=== PATIENT | male | born 1950 | race African-American/Black ===

== ENCOUNTER 2017-01-13 09:12 | Outpatient (CLI) | payer MEDICARE ==
[2017-01-13 12:44] LABS: Hemoglobin A1c 11.1 % (4.0-6.0)
== END 2017-01-13 09:13 | disposition home or self-care (01) ==
LOC: NAVSJIPCSP 09:12
PROVIDERS: ATTEND Internal Medicine
DX: E78.5 Hyperlipidemia, unspecified (principal); E11.65 Type 2 diabetes mellitus with hyperglycemia; Z79.899 Other long term (current) drug therapy
CPT/HCPCS: 36415; 80061; 83036

== ENCOUNTER 2017-04-15 08:42 | Outpatient (CLI) | payer MEDICARE ==
[2017-04-15 12:47] LABS: Hemoglobin A1c 11.3 % (4.0-6.0)
[2017-04-15 12:55] LABS: Cardiac Risk 3.8 (Less than 4.5)
== END 2017-04-15 08:43 | disposition home or self-care (01) ==
LOC: NAVSJIPCSP 08:42
PROVIDERS: ATTEND Internal Medicine
DX: E78.5 Hyperlipidemia, unspecified (principal); E11.65 Type 2 diabetes mellitus with hyperglycemia; Z79.899 Other long term (current) drug therapy
CPT/HCPCS: 36415; 80061; 83036

== ENCOUNTER 2017-07-23 10:04 | Outpatient (CLI) | payer MEDICARE ==
[2017-07-23 12:00] LABS: #Basophils 0.1 thou/uL (0.0-0.2); #Eosinphils 0.1 thou/uL (0.0-0.7); #Lymphocytes 3.4 thou/uL (1.20-3.40); #Monocytes 0.5 thou/uL (0.11-0.59); #Neutrophils 3.7 thou/uL (1.40-6.50); %Basophils 1.1 % (0.0-1.0); %Eosinophils 0.8 % (0.0-10.0); %Lymphocytes 43.9 % (21.0-51.0); %Monocytes 6.3 % (0.0-10.0); Mean Corpuscular HGB CONC 32.6 g/dL (32.0-36.0); Mean Corpuscular Hemoglobin 29.5 pg (27.0-31.0); Mean Corpuscular Volume 90.5 fl (80.0-94.0); Mean Platelet Volume 8.9 fL (7.4-10.4); Platelet Count 230 thou/uL (130-400); RBC Distribution Width 11.9 % (11.5-14.5); Red Blood Cell (RBC) Count 4.41 mill/uL (4.70-6.10); White Blood Cell (WBC) Count 7.8 thou/uL (4.8-10.8)
[2017-07-23 12:15] LABS: ALT (SGPT) 20 U/L (8-55); AST (SGOT) 18 U/L (5-34); Albumin 4.1 g/dL (3.4-4.8); Alkaline Phosphatase 80 U/L (40-150); Anion Gap 20 mmol/L (10-20); BUN (Urea Nitrogen) 11 mg/dL (8.4-25.7); Bilirubin, Total 0.3 mg/dL (0.2-1.2); Calc. Creatinine Clearance 0 mL/min (70-130); Calcium 9.1 mg/dL (7.8-10.44); Carbon Dioxide 20 mmol/L (23-31); Cardiac Risk 3.2 (Less than 4.5); Chloride 107 mmol/L (98-107); Cholesterol 168 mg/dl (< 200 Desired); Estimated GFR-MDRD 85; Glucose 200 mg/dL (80-115); HDL Cholesterol 53 mg/dL (>60 Neg Risk); LDL Cholesterol, Calculated 88 mg/dL; Protein, Total 7.1 g/dL (5.8-8.1); Sodium 143 mmol/L (136-145); Triglycerides 133 mg/dL (Less than 150)
[2017-07-23 12:27] LABS: Bilirubin Negative (Negative); Blood, Urine Negative (Negative); Clarity Clear (Clear); Glucose, Urine (Dipstick) 500 mg/dL (Negative); Leukocyte Negative (Negative); Nitrite Negative (Negative); Protein, Urine (Dipstick) Trace mg/dL (Neg-Trace); Specific Gravity, Urine 1.015 (1.005-1.030); Urobilinogen 0.2 mg/dL (0.2-1.0)
[2017-07-23 12:29] LABS: PSA-Asymptomatic (SCREENING) 0.57 ng/mL (0-4.0)
[2017-07-23 12:39] LABS: Hemoglobin A1c 10.9 % (4.0-6.0)
[2017-07-23 18:06] LABS: Hep C IgG Ab Non-Reactive (NonReactive); Hep C Index 0.13 S/CO (0-0.79)
[2017-07-23 18:12] LABS: Creatinine, Urine 140.8 mg/dL (63-166); Microalbumin Urine 9.3 mg/dL (0.5-50.0); Microalbumin/Creat Ratio 66.1 mg/g (Less than 30)
== END 2017-07-23 10:05 | disposition home or self-care (01) ==
LOC: NAVSJIPCSP 10:04
PROVIDERS: ATTEND Internal Medicine
DX: Z12.5 Encounter for screening for malignant neoplasm of prostate (principal); Z79.899 Other long term (current) drug therapy; I11.9 Hypertensive heart disease without heart failure; E11.65 Type 2 diabetes mellitus with hyperglycemia; E78.5 Hyperlipidemia, unspecified; Z72.89 Other problems related to lifestyle
CPT/HCPCS: 36415; 80053; 80061; 81003; 82043; 83036; 85025; 86803; G0103

== ENCOUNTER 2019-10-09 10:58 | Emergency (ER) | payer MEDICARE | END 2019-10-09 12:15 | disposition home or self-care (01) | LOC: NAV ERS 10:58 | DX: T16.2XXA Foreign body in left ear, initial encounter (principal); E11.9 Type 2 diabetes mellitus without complications; E78.5 Hyperlipidemia, unspecified; I10 Essential (primary) hypertension; Z87.891 Personal history of nicotine dependence; Z79.4 Long term (current) use of insulin; Z79.82 Long term (current) use of aspirin; Z79.899 Other long term (current) drug therapy | CPT/HCPCS: 69200 ==

== ENCOUNTER 2020-06-04 10:28 | Emergency (ER) | payer MEDICARE, OTHER ==
[2020-06-04] MEDS ORDERED: Ventolin HFA Inhaler 60 PUFF INHALER ONE (11:02)
[2020-06-04 11:13] LABS: #Basophils 0.1 thou/uL (0.0-0.2); #Eosinphils 0.1 thou/uL (0.0-0.7); #Lymphocytes 1.7 thou/uL (1.20-3.40); #Monocytes 1.1 thou/uL (0.11-0.59); #Neutrophils 15.2 thou/uL (1.40-6.50); %Basophils 0.6 % (0.0-1.0); %Eosinophils 0.3 % (0.0-10.0); %Lymphocytes 9.4 % (21.0-51.0); %Monocytes 5.9 % (0.0-10.0); %Neutrophils 83.8 % (42.0-75.0); Hemoglobin 9.5 g/dL (14.0-18.0); Mean Corpuscular HGB CONC 30.6 g/dL (32.0-36.0); Mean Corpuscular Hemoglobin 28.5 pg (27.0-31.0); Mean Corpuscular Volume 93.3 fL (78.0-98.0); Mean Platelet Volume 6.8 fL (7.4-10.4); Platelet Count 585 thou/uL (130-400); RBC Distribution Width 12.5 % (11.5-14.5); Red Blood Cell (RBC) Count 3.32 mill/uL (4.70-6.10); White Blood Cell (WBC) Count 18.1 thou/uL (4.8-10.8)
[2020-06-04 11:29] LABS: ALT (SGPT) 118 U/L (8-55); AST (SGOT) 34 U/L (5-34); Albumin 3.4 g/dL (3.4-4.8); Alkaline Phosphatase 91 U/L (40-110); Anion Gap 18 mmol/L (10-20); BUN (Urea Nitrogen) 20 mg/dL (8.4-25.7); Bilirubin, Total 0.3 mg/dL (0.2-1.2); Calc. Creatinine Clearance 0 mL/min (70-130); Calcium 8.9 mg/dL (7.8-10.44); Carbon Dioxide 17 mmol/L (23-31); Chloride 111 mmol/L (98-107); Estimated GFR-MDRD 64; Glucose 294 mg/dL (80-115); Potassium 3.9 mmol/L (3.5-5.1); Protein, Total 7.4 g/dL (5.8-8.1); Sodium 142 mmol/L (136-145)
[2020-06-04] MEDS ORDERED: Albuterol Sulfate 2.5 mg/0.5 ml Neb ONE (11:43)
[2020-06-04 11:56] LABS: CKMB 5.8 ng/mL (0-6.6)
[2020-06-04] MEDS ORDERED: Cefepime 2 GM VIAL ONE (12:13)
--- NOTE | 2020-06-04 12:24 | RAD ---
PORTABLE CHEST 1 VIEW: Date: 06/04/2020 Time: 1201 hours HISTORY: Dyspnea. COMPARISON: 05/29/2020. FINDINGS/IMPRESSION: The heart size is normal. There is pulmonary vascular congestion with bilateral perihilar opacities. No pneumothoraces or large effusions are seen. POS: [facility]
[2020-06-04] MEDS ORDERED: Sodium Chloride 0.9% 500 ML ONE (12:56)
[2020-06-04] MEDS ORDERED: Furosemide 40 MG/4 ML VIAL ONE (14:11)
== END 2020-06-04 14:43 | disposition short-term general hospital (02) ==
LOC: NAV ERS 10:28
DX: A41.9 Sepsis, unspecified organism (principal); J18.9 Pneumonia, unspecified organism; E11.9 Type 2 diabetes mellitus without complications; E78.5 Hyperlipidemia, unspecified; I10 Essential (primary) hypertension; Z87.891 Personal history of nicotine dependence; Z79.899 Other long term (current) drug therapy; Z79.4 Long term (current) use of insulin
CPT/HCPCS: 71045; 80053; 82553; 83605; 83880; 84484; 85025; 85379; 87040; 93005; 96365; 96366; 96375; J0692; J1940; J1956; J3370; J7030; J7611

== ENCOUNTER 2020-06-25 11:31 | Emergency (ER) | payer MEDICARE ==
[2020-06-25] MEDS ORDERED: cloNIDine 0.1 MG TAB ONE (11:51)
== END 2020-06-25 12:30 | disposition home or self-care (01) ==
LOC: NAV ERS 11:31
DX: R04.0 Epistaxis (principal); I10 Essential (primary) hypertension; E11.9 Type 2 diabetes mellitus without complications; E78.5 Hyperlipidemia, unspecified; Z87.891 Personal history of nicotine dependence; Z79.899 Other long term (current) drug therapy; Z79.82 Long term (current) use of aspirin
CPT/HCPCS: 99283

== ENCOUNTER 2020-07-14 13:09 | Emergency (ER) | payer MEDICARE | END 2020-07-14 15:09 | disposition home or self-care (01) | LOC: NAV ERS 13:09 | DX: S98.111D Complete traumatic amputation of right great toe, subsequent encounter (principal); E78.5 Hyperlipidemia, unspecified; I10 Essential (primary) hypertension; Z87.891 Personal history of nicotine dependence; Z79.82 Long term (current) use of aspirin; Z79.899 Other long term (current) drug therapy | CPT/HCPCS: 99282 ==

== ENCOUNTER 2021-02-15 17:27 | Outpatient (CLI) | payer MEDICARE | END 2021-02-15 17:28 | disposition home or self-care (01) | LOC: NAV RAD 17:27 | PROVIDERS: ATTEND Internal Medicine Infectious Disease | DX: M86.271 Subacute osteomyelitis, right ankle and foot (principal) ==

== ENCOUNTER 2021-07-12 11:10 | Outpatient (CLI) | payer MEDICARE ==
[2021-07-15 11:31] LABS: Anion Gap 12 mmol/L (10-20); BUN (Urea Nitrogen) 41 mg/dL (8.4-25.7); Calc. Creatinine Clearance 0 mL/min (70-130); Calcium 8.8 mg/dL (7.8-10.44); Carbon Dioxide 23 mmol/L (23-31); Chloride 108 mmol/L (98-107); Glucose 101 mg/dL (80-115); Potassium 5.4 mmol/L (3.5-5.1); Sodium 138 mmol/L (136-145)
[2021-07-15 12:55] LABS: Follow-up Chemistry Comp? YES; Follow-up Result - Chemistry REPORT FAXED
== END 2021-07-12 11:11 | disposition home or self-care (01) ==
LOC: NAV LABSP 11:10
PROVIDERS: ATTEND Internal Medicine
DX: N18.4 Chronic kidney disease, stage 4 (severe) (principal)
CPT/HCPCS: 80048

== ENCOUNTER 2021-07-22 10:34 | Outpatient (CLI) | payer MEDICARE ==
[2021-07-22 11:21] LABS: Albumin 3.2 g/dL (3.4-4.8); Anion Gap 15 mmol/L (10-20); BUN (Urea Nitrogen) 49 mg/dL (8.4-25.7); BUN/Creatinine Ratio 22.79; Calc. Creatinine Clearance 0 mL/min (70-130); Calcium 8.4 mg/dL (7.8-10.44); Carbon Dioxide 19 mmol/L (23-31); Chloride 112 mmol/L (98-107); Glucose 122 mg/dL (80-115); Phosphorus 4.6 mg/dL (2.3-4.7); Potassium 4.1 mmol/L (3.5-5.1); Sodium 142 mmol/L (136-145)
[2021-07-22 12:06] LABS: Follow-up Chemistry Comp? YES; Follow-up Result - Chemistry REPORT FAXED
== END 2021-07-22 10:35 | disposition home or self-care (01) ==
LOC: NAV LABSP 10:34
PROVIDERS: ATTEND Internal Medicine Nephrology
DX: N17.9 Acute kidney failure, unspecified (principal)
CPT/HCPCS: 36415; 80069

== ENCOUNTER 2021-08-16 09:36 | Outpatient (CLI) | payer MEDICARE ==
[2021-08-16 12:31] LABS: Hemoglobin 10.5 g/dL (14.0-18.0); Mean Corpuscular HGB CONC 30.5 g/dL (32.0-36.0); Mean Corpuscular Hemoglobin 27.6 pg (27.0-31.0); Mean Corpuscular Volume 90.4 fL (78.0-98.0); White Blood Cell (WBC) Count 7.5 thou/uL (4.8-10.8)
[2021-08-16 12:32] LABS: Mean Platelet Volume 7.2 fL (7.4-10.4); Platelet Count 304 thou/uL (130-400)
[2021-08-16 12:33] LABS: Albumin 3.5 g/dL (3.4-4.8); Anion Gap 15 mmol/L (10-20); BUN (Urea Nitrogen) 51 mg/dL (8.4-25.7); BUN/Creatinine Ratio 19.17; Calc. Creatinine Clearance 0 mL/min (70-130); Carbon Dioxide 18 mmol/L (23-31); Chloride 110 mmol/L (98-107); Glucose 166 mg/dL (80-115); Potassium 4.9 mmol/L (3.5-5.1); Sodium 138 mmol/L (136-145)
[2021-08-16 12:34] LABS: Magnesium 1.8 mg/dL (1.6-2.6)
[2021-08-16 12:38] LABS: Follow-up Chemistry Comp? YES; Follow-up Hematology Comp? YES; Follow-up Result - Chemistry REPORT FAXED; Follow-up Result - Hematology REPORT FAXED
== END 2021-08-16 09:37 | disposition home or self-care (01) ==
LOC: NAV LAB 09:36
PROVIDERS: ATTEND Internal Medicine Nephrology
DX: N17.9 Acute kidney failure, unspecified (principal); N18.30 Chronic kidney disease, stage 3 unspecified
CPT/HCPCS: 80069; 83735; 85027

== ENCOUNTER 2021-08-30 09:47 | Outpatient (CLI) | payer MEDICARE ==
[2021-08-30 12:43] LABS: Hemoglobin A1c 6.6 % (4.0-6.0)
[2021-08-30 13:23] LABS: Cardiac Risk 3.3 (Less than 4.5)
== END 2021-08-30 09:48 | disposition home or self-care (01) ==
LOC: NAV LABSP 09:47
PROVIDERS: ATTEND Internal Medicine
DX: E78.5 Hyperlipidemia, unspecified (principal); E11.65 Type 2 diabetes mellitus with hyperglycemia
CPT/HCPCS: 80061; 83036

== ENCOUNTER 2021-12-02 10:24 | Emergency (ER) | payer MEDICARE ==
[2021-12-02] MEDS ORDERED: Cefepime 2 GM VIAL ONE (11:21)
[2021-12-02] MEDS ORDERED: Sodium Chloride 0.9% 100 ML ONE (11:21)
[2021-12-02 11:36] LABS: #Basophils 0.1 thou/uL (0.0-0.2); #Lymphocytes 1.1 thou/uL (1.20-3.40); #Monocytes 1.2 thou/uL (0.11-0.59); #Neutrophils 8.5 thou/uL (1.40-6.50); %Basophils 0.9 % (0.0-1.0); %Eosinophils 0.1 % (0.0-10.0); %Lymphocytes 9.8 % (21.0-51.0); %Monocytes 11.3 % (0.0-10.0); %Neutrophils 77.9 % (42.0-75.0); Hemoglobin 10.2 g/dL (14.0-18.0); Mean Corpuscular HGB CONC 31.3 g/dL (32.0-36.0); Mean Corpuscular Volume 92.5 fL (78.0-98.0); Mean Platelet Volume 6.7 fL (7.4-10.4); Platelet Count 270 thou/uL (130-400); RBC Distribution Width 14.9 % (11.5-14.5); Red Blood Cell (RBC) Count 3.53 mill/uL (4.70-6.10); White Blood Cell (WBC) Count 10.9 thou/uL (4.8-10.8)
[2021-12-02 11:41] LABS: Bilirubin Negative (Negative); Blood, Urine Moderate (Negative); Clarity Clear (Clear); Glucose, Urine (Dipstick) Negative (Negative); Ketone, Urine 15 mg/dL (Negative); Leukocyte Negative (Negative); Nitrite Negative (Negative); Protein, Urine (Dipstick) > or equal to 300 mg/dL (Neg-Trace); Urobilinogen 0.2 mg/dL (Less than 2); pH, Urine 5.5 (5.0-9.0)
[2021-12-02 11:49] LABS: ALT (SGPT) 7 U/L (8-55); AST (SGOT) 12 U/L (5-34); Albumin 3.5 g/dL (3.4-4.8); Alkaline Phosphatase 76 U/L (40-110); Anion Gap 18 mmol/L (10-20); BUN (Urea Nitrogen) 32 mg/dL (8.4-25.7); Bilirubin, Total 0.5 mg/dL (0.2-1.2); CK (CPK) 175 U/L (30-200); Calc. Creatinine Clearance 0 mL/min (70-130); Calcium 8.9 mg/dL (7.8-10.44); Carbon Dioxide 17 mmol/L (23-31); Chloride 111 mmol/L (98-107); Globulin 4.5 g/dL (2.4-3.5); Glucose 112 mg/dL (83-110); Lipase 9 U/L (8-78); Sodium 141 mmol/L (136-145)
[2021-12-02 11:52] LABS: Bacteria/HPF None Seen HPF (None Seen); Squamous Epithelial 0-3 HPF (0-3); WBC/HPF 0-3 HPF (0-3)
[2021-12-02 12:25] LABS: SARS-CoV-2 NAA Rapid Test Not Detected (NotDetected)
[2021-12-02 13:08] LABS: CKMB 4.9 ng/mL (0-6.6)
== END 2021-12-02 14:11 | disposition short-term general hospital (02) ==
LOC: NAV ERS 10:24
DX: A41.9 Sepsis, unspecified organism (principal); J18.8 Other pneumonia, unspecified organism; E11.9 Type 2 diabetes mellitus without complications; E78.5 Hyperlipidemia, unspecified; I10 Essential (primary) hypertension; Z87.891 Personal history of nicotine dependence; Z79.899 Other long term (current) drug therapy; Z20.822 Contact with and (suspected) exposure to COVID-19
CPT/HCPCS: 0240U; 71045; 80053; 82550; 82553; 83605; 83690; 84484; 85025; 87040; 93005; 36415; 81003; 81015; 96365; 96366; 96367; J0692; J1956; J3490

== ENCOUNTER 2021-12-26 11:43 | Outpatient (CLI) | payer MEDICARE | END 2021-12-26 11:44 | disposition home or self-care (01) | LOC: NAV LABSP 11:43 | PROVIDERS: ATTEND Internal Medicine Nephrology | DX: N17.9 Acute kidney failure, unspecified (principal) | CPT/HCPCS: 80069 ==

== ENCOUNTER 2023-07-06 08:01 | Emergency (ER) | payer MEDICARE ==
[2023-07-06 08:44] LABS: INR-International Normal Ratio 1.3; Prothrombin Time 16.8 sec (12.0-14.7)
[2023-07-06 08:45] LABS: PTT 39.1 sec (22.9-36.1)
[2023-07-06 08:53] LABS: ALT (SGPT) 10 U/L (8-55); AST (SGOT) 8 U/L (5-34); Albumin 3.9 g/dL (3.4-4.8); Alkaline Phosphatase 86 U/L (40-110); Anion Gap 16 mmol/L (10-20); BUN (Urea Nitrogen) 41 mg/dL (8.4-25.7); Bilirubin, Total 0.4 mg/dL (0.2-1.2); Calc. Creatinine Clearance 0 mL/min (70-130); Calcium 8.6 mg/dL (7.8-10.44); Carbon Dioxide 19 mmol/L (23-31); Chloride 113 mmol/L (98-107); Estimated GFR 18; Globulin 3.4 g/dL (2.4-3.5); Glucose 123 mg/dL (83-110); Magnesium 1.7 mg/dL (1.6-2.6); Potassium 4.2 mmol/L (3.5-5.1); Protein, Total 7.3 g/dL (5.8-8.1); Sodium 144 mmol/L (136-145)
[2023-07-06 08:54] LABS: Troponin I 0.019 ng/mL (< 0.028)
[2023-07-06 08:57] LABS: Red Blood Cell (RBC) Count 2.84 mill/uL (4.70-6.10)
[2023-07-06 08:58] LABS: #Basophils 0.1 thou/uL (0.0-0.2); #Eosinphils 0.1 thou/uL (0.0-0.7); #Lymphocytes 1.5 thou/uL (1.20-3.40); #Monocytes 0.6 thou/uL (0.11-0.59); #Neutrophils 6.6 thou/uL (1.40-6.50); %Basophils 0.8 % (0.0-1.0); %Eosinophils 1.6 % (0.0-10.0); %Lymphocytes 17.1 % (21.0-51.0); %Monocytes 7.2 % (0.0-10.0); %Neutrophils 73.3 % (42.0-75.0); Hematocrit 25.8 % (42.0-52.0); Hemoglobin 8.3 g/dL (14.0-18.0); Manual Diff?? NO; Mean Corpuscular HGB CONC 31.8 g/dL (32.0-36.0); Mean Corpuscular Hemoglobin 29.1 pg (27.0-31.0); Mean Corpuscular Volume 91.4 fl (78.0-98.0); Mean Platelet Volume 5.4 fL (7.4-10.4); Platelet Count 214 10x3/uL (130-400)
[2023-07-06] MEDS ORDERED: Metoprolol Tartrate 5 MG/5 ML VIAL ONE (09:07)
[2023-07-06] MEDS ORDERED: Aspirin 325 MG TAB ONE (09:07)
[2023-07-06] MEDS ORDERED: Furosemide 40 MG/4 ML VIAL ONE (09:07)
[2023-07-06 13:06] LABS: SARS-CoV-2 NAA Rapid Test Not Detected (NotDetected)
== END 2023-07-06 12:59 | disposition short-term general hospital (02) ==
LOC: NAV ERS 08:01
DX: I13.0 Hypertensive heart and chronic kidney disease with heart failure and stage 1 through stage 4 chronic kidney disease, or unspecified chronic kidney disease (principal); E11.22 Type 2 diabetes mellitus with diabetic chronic kidney disease; N18.9 Chronic kidney disease, unspecified; I50.9 Heart failure, unspecified; D64.9 Anemia, unspecified; R09.02 Hypoxemia; E78.5 Hyperlipidemia, unspecified; Z20.822 Contact with and (suspected) exposure to COVID-19; Z99.2 Dependence on renal dialysis; Z87.891 Personal history of nicotine dependence; Z79.899 Other long term (current) drug therapy; Z89.512 Acquired absence of left leg below knee
CPT/HCPCS: 0240U; 71045; 80053; 83605; 83735; 83880; 84484; 85025; 85610; 85730; 87040; 93005; 36415; 96374; 96375; J1940

== ENCOUNTER 2024-04-27 01:38 | Emergency (ER) | payer MEDICARE ==
[2024-04-27] MEDS ORDERED: Midazolam HCl 2 mg/2 ml Vial ONE (02:07)
[2024-04-27] MEDS ORDERED: fentaNYL 50 mcg/mL 1 mL Vial ONE (02:07)
[2024-04-27 02:11] LABS: Troponin I 0.039 ng/mL (< 0.028)
[2024-04-27 02:12] LABS: ALT (SGPT) 275 U/L (8-55); AST (SGOT) 206 U/L (5-34); Albumin 3.2 g/dL (3.4-4.8); Alkaline Phosphatase 98 U/L (40-110); Anion Gap 20 mmol/L (10-20); BUN (Urea Nitrogen) 73 mg/dL (8.4-25.7); Bilirubin, Total 0.3 mg/dL (0.2-1.2); Calc. Creatinine Clearance 0 mL/min (70-130); Calcium 9.1 mg/dL (7.8-10.44); Carbon Dioxide 13 mmol/L (23-31); Chloride 116 mmol/L (98-107); Estimated GFR 10; Globulin 3.4 g/dL (2.4-3.5); Glucose 347 mg/dL (83-110); Protein, Total 6.6 g/dL (5.8-8.1); Sodium 142 mmol/L (136-145)
[2024-04-27] MEDS ORDERED: Atropine Sulfate 1 mg/10 ml Syringe ONE ×2 (02:16→09:00)
[2024-04-27 02:17] LABS: Base Excess-Venous -14.7 mmol/L (-2.0 to 3.0); Bicarbonate (HCO3v) 14.9 mmol/L (22.0-28.0); CO2 Tension (PvCO2) 52.1 mmHg (42.0-51.0); Calcium, Ionized 1.27 mmol/L (1.15-1.33); Chloride 118 mmol/L (98-107); Critical Call Chemistry NUR.SB13@0207; Hemoglobin - Calc 8.7 g/dL (14.0-18.0); Potassium 7.3 mmol/L (3.5-5.1); Potassium 7.5 mmol/L (3.5-5.1); Sodium 143 mmol/L (138-145); T. Carbon Dioxide 16.5 mmol/L (22.0-28.0); vO2 Saturation-calc 84.1 % (60.0-85.0)
[2024-04-27] MEDS ORDERED: NOREPINEPHRINE 8 MG/250 ML-D5W 250 ML ONE (02:18)
[2024-04-27] MEDS ORDERED: Insulin Regular, Human 100 UNIT/ML 10 ML VIAL ONE (02:22)
[2024-04-27 02:24] LABS: Hematocrit 26.6 % (42.0-52.0); Hemoglobin 8.2 g/dL (14.0-18.0); Mean Corpuscular HGB CONC 30.7 g/dL (32.0-36.0); Mean Corpuscular Hemoglobin 28.9 pg (27.0-31.0); Mean Corpuscular Volume 94.2 fl (78.0-98.0); Mean Platelet Volume 7.1 fL (7.4-10.4); Platelet Count 196 10x3/uL (130-400); RBC Distribution Width 15.3 % (11.5-14.5); Red Blood Cell (RBC) Count 2.82 mill/uL (4.70-6.10); White Blood Cell (WBC) Count 14.3 10x3/uL (4.8-10.8)
[2024-04-27 02:25] LABS: Band 2 % (5-11); Eosinophils 1 % (0-10); Lymphocytes 46 % (21-51); MDiff Complete? YES; Monocytes 3 % (0-10); Neutrophil 48 % (42-75); Platelet Adequacy Comment Appears Adequate
[2024-04-27] MEDS ORDERED: Sodium Bicarb 50 MEQ/50 ML Abboject 8.4% SYRINGE ONE (09:00)
[2024-04-27] MEDS ORDERED: EPINEPHrine 1 MG/10 ML Abboject SYRINGE ONE (09:00)
[2024-04-27] MEDS ORDERED: Calcium Chloride 1 GM/10 ML Abboject SYRINGE ONE (09:00)
[2024-04-27] MEDS ORDERED: EPINEPHrine 1 MG/ML AMP ONE (09:00)
== END 2024-04-27 02:30 | disposition short-term general hospital (02) ==
LOC: NAV ERS 01:38
DX: I46.9 Cardiac arrest, cause unspecified (principal); E11.9 Type 2 diabetes mellitus without complications; I11.0 Hypertensive heart disease with heart failure; I50.9 Heart failure, unspecified; E78.5 Hyperlipidemia, unspecified; Z99.2 Dependence on renal dialysis; N28.9 Disorder of kidney and ureter, unspecified; Z87.891 Personal history of nicotine dependence; Z79.899 Other long term (current) drug therapy
CPT/HCPCS: 71045; 80053; 82330; 82803; 84484; 85025; 93005; J0171; J0461; J1815; J2250; J3010